=== PATIENT | male | born 1975 | race Hispanic/Latino ===

== ENCOUNTER 2017-05-27 09:32 | Inpatient (IN) | payer OTHER ==
[~2017-05-27] VITALS: Ht 188 cm; Wt 126.1 kg
[~2017-05-27 09:32] MED LIST: AMLO5TAB4 PO; DOXY100C2 PO; HYDR12.530 PO; INSU100V12 SQ; LISI30TA4 PO; PIOG15TA66 PO
[2017-05-27] MEDS ORDERED: ZOSYN 3.375GM+NS 50ML 50 ML IV ONE ×2 (09:52→17:54)
[2017-05-27] MEDS ORDERED: VANCOMYCIN 1GM+NS 250ML 250 ML IV ONE (09:53)
[2017-05-27] MEDS ORDERED: ACETAMINOPHEN EXTRA STRENGTH 500 MG TABLET ONE (09:53)
[2017-05-27 10:05] LABS: BASOPHILS % (AUTO) 0.6 % (0.0-5.0); EOSINOPHILS % (AUTO) 0.1 % (0.0-8.0); HEMATOCRIT 37.9 % (42-54); MEAN CORPUSCULAR HEMOGLOBIN 28.4 pg (27.0-33.0); MEAN CORPUSCULAR HGB CONC 33.7 g/dL (32.0-36.0); MEAN CORPUSCULAR VOLUME 84.4 fL (79-99); MONOCYTES % (AUTO) 6.2 % (3.0-13.0); NEUTROPHILS % (AUTO) 89.1 % (40.0-77.0); PLATELET COUNT (AUTO) 316 K/uL (130-400); RED BLOOD CELL COUNT(AUTO) 4.49 MIL/uL (4.50-6.20); RED CELL DISTRIBUTION WIDTH 12.3 % (11.0-15.5)
[2017-05-27 10:14] LABS: INR 1.11 (0.85-1.15); PARTIAL THROMBOPLASTIN TIME 35.7 SEC (26.3-35.5); PROTHROMBIN TIME 11.6 SEC (9.6-11.6)
[2017-05-27 10:27] LABS: ALANINE AMINOTRANSFERASE 25 U/L (12-78); ALBUMIN 2.6 g/dL (3.5-5.0); ASPARTATE AMINOTRANSFERASE 18 U/L (10-37); BILIRUBIN,TOTAL 0.9 mg/dL (0.2-1.0); CARBON DIOXIDE 20 mmol/L (21-32); CHLORIDE 92 mmol/L (101-111); CREATINE KINASE MB < 0.5 ng/mL (0.5-3.6); CREATINE KINASE, TOTAL 168 U/L (21-232); CREATININE 1.7 mg/dL (0.5-1.5); GLOMERULAR FILTR. RATE CALC 47 mL/min (>60); MYOGLOBIN 151 ng/mL (10-92); POTASSIUM 4.6 mmol/L (3.5-5.1); SODIUM SERUM 129 mmol/L (136-145); TOTAL PROTEIN, SERUM 7.7 g/dL (6.0-8.3); TROPONIN I < 0.04 ng/mL (0.00-0.06); UREA NITROGEN, BLOOD 17 mg/dL (7-18)
[2017-05-27 10:45] LABS: GLUCOSE,RANDOM 452 mg/dL (70-105)
[2017-05-27] MEDS ORDERED: INSULIN HUMULIN R 100 UNIT/ML 3ML ONE (11:02)
[2017-05-27] MEDS ORDERED: MAG HYDROX/AL HYDROX/SIMETH ES 30 ML SUSP UDCUP PO PRN (12:00)
[2017-05-27] MEDS ORDERED: GUAIFENESIN-DM 200/20 MG 10 ML PO PRN (12:00)
[2017-05-27] MEDS ORDERED: MORPHINE SULFATE 2 MG/ML 1ML SYG IVP PRN (12:00)
[2017-05-27] MEDS ORDERED: ACETAMINOPHEN-CODEINE 300/30MG TAB PO PRN (12:00)
[2017-05-27] MEDS ORDERED: MORPHINE SULFATE 2 MG/ML 1ML SYG IV PRN (12:00)
[2017-05-27] MEDS ORDERED: VANCOMYCIN PROTOCOL PER PHARMACY IV PRN (12:00)
[2017-05-27] MEDS ORDERED: ONDANSETRON HCL 4 MG/2 ML VIAL IV PRN (12:00)
[2017-05-27] MEDS ORDERED: ACETAMINOPHEN 325 MG TAB PO PRN (12:00)
[2017-05-27] MEDS ORDERED: LACTULOSE 20 GM/30 ML UDCUP PO PRN (12:00)
[2017-05-27] MEDS ORDERED: SODIUM CHLORIDE 0.9% 1000ML 4,000 ML IV ONE (12:02)
[2017-05-27 12:56] LABS: HEMOGLOBIN A1C 12.3 % (4.0-6.0)
[2017-05-27] MEDS ORDERED: ZOSYN 3.375GM+NS 50ML 50 ML IV SCH (13:00)
[2017-05-27] MEDS ORDERED: PIPERACILLIN SODIUM/TAZOBACTAM 3.375 GM VIAL IV SCH (13:00)
[2017-05-27 14:19] LABS: APPEARANCE,URINE Cloudy (CLEAR); BILIRUBIN,URINE Negative (NEGATIVE); COLOR,URINE Yellow (YELLOW); GLUCOSE, URINE (UA) >=1000 mg/dL (NEGATIVE); KETONES,URINE >=80 mg/dL (NEGATIVE); LEUKOCYTE ESTERASE ,URINE Negative (NEGATIVE); NITRATE,URINE Negative (NEGATIVE); OCCULT BLOOD,URINE Moderate (NEGATIVE); PROTEIN,URINE POS 2+ (NEGATIVE); UROBILINOGEN,URINE 0.2 mg/dL (0.2-1.0)
[2017-05-27 14:30] LABS: BACTERIA,URINE Rare /HPF (None Seen); SQUAMOUS EPITHELIAL CELL,UR Rare /LPF (0-2); WBC,URINE 0-1 /HPF (0-1)
[2017-05-27 21:30] VITALS: BP 163/74
[2017-05-27] MEDS: MEROPENEM 1 GM VIAL IVP SCH (21:58)
[2017-05-27] MEDS: ACETAMINOPHEN 325 MG TAB PO PRN (22:00)
[2017-05-27] MEDS: FAMOTIDINE 20MG TAB 20 MG TAB PO SCH (22:00)
[2017-05-27] MEDS: INSULIN GLARGINE 100 UNITS/ML 10 ML VIAL SQ SCH (22:04)
[2017-05-27] MEDS ORDERED: NPH,100V SQ (22:28)
[2017-05-27] MEDS ORDERED: METF10004 PO (22:28)
[2017-05-27 23:03] VITALS: BP 145/78
[2017-05-28] VITALS (24 sets, daily range): BP systolic 98–167; BP diastolic 50–89
[2017-05-28] MEDS ORDERED: HYDRALAZINE HCL 20 MG/ML VIAL IV PRN
[2017-05-28] MEDS ORDERED: DEXTROSE 50%-WATER 50 ML DISP.SYRIN IV PRN
[2017-05-28] MEDS ORDERED: GLUCAGON 1MG KIT 1 MG ML IM PRN
[2017-05-28] MEDS: MEROPENEM 1 GM VIAL IVP SCH ×3 (05:06→20:42)
[2017-05-28] MEDS: ACETAMINOPHEN 325 MG TAB PO PRN (05:11)
[2017-05-28 06:16] LABS: MEAN CORPUSCULAR HEMOGLOBIN 28.2 pg (27.0-33.0); MEAN CORPUSCULAR HGB CONC 33.5 g/dL (32.0-36.0); MEAN CORPUSCULAR VOLUME 84.4 fL (79-99); PLATELET COUNT (AUTO) 300 K/uL (130-400); RED BLOOD CELL COUNT(AUTO) 4.02 MIL/uL (4.50-6.20); RED CELL DISTRIBUTION WIDTH 12.2 % (11.0-15.5); WHITE BLOOD COUNT (AUTO) 15.3 K/uL (4.8-10.8)
[2017-05-28 06:22] LABS: CREATININE 1.3 mg/dL (0.5-1.5); POTASSIUM 3.8 mmol/L (3.5-5.1)
[2017-05-28] MEDS: INSULIN HUMULIN R 100 UNIT/ML 3ML SQ SCH ×3 (06:23→20:48)
[2017-05-28] MEDS: INSULIN GLARGINE 100 UNITS/ML 10 ML VIAL SQ SCH ×2 (06:24→20:49)
[2017-05-28] MEDS ORDERED: COMPOUND IV REFRIGERATED 1 EACH IVSOLN MISC PRN (07:30)
[2017-05-28] MEDS ORDERED: VANCOMYCIN 1.5 GM in SODIUM CHLORIDE 0.9% 250 ML IV SCH (07:30)
[2017-05-28] MEDS: FAMOTIDINE 20MG TAB 20 MG TAB PO SCH ×2 (08:45→20:42)
[2017-05-28] MEDS ORDERED: DEXAMETHASONE SOD PHOSPHATE 10MG/ML 1ML VIAL ONE ×2 (16:11→18:14)
[2017-05-28] MEDS ORDERED: GLYCOPYRROLATE 0.2 MG/ML 5 ML VIAL ONE ×2 (16:11→18:15)
[2017-05-28] MEDS ORDERED: SUCCINYLCHOLINE 200MG/10ML SYR ONE (16:11)
[2017-05-28] MEDS ORDERED: LIDOCAINE PF 2% 5ML ABBOJECT ONE (16:11)
[2017-05-28] MEDS ORDERED: MIDAZOLAM HCL 1 MG/ML 2ML VIAL ONE (16:11)
[2017-05-28] MEDS ORDERED: ONDANSETRON HCL 4 MG/2 ML VIAL ONE (16:11)
[2017-05-28] MEDS ORDERED: PROPOFOL 10 MG/ML 20ML VIAL IV ONE (16:11)
[2017-05-28] MEDS ORDERED: FENTANYL CITRATE PF 50 MCG/1 ML 2ML VIAL ONE ×3 (16:12→18:09)
[2017-05-28] MEDS: VANCOMYCIN 1.25 GM in SODIUM CHLORIDE 0.9% 250 ML IV SCH ×2 (16:19→21:53)
[2017-05-28] MEDS ORDERED: NEOMY SULF/POLYMYXIN B SULFATE 1 ML AMPUL IR ONE (18:02)
[2017-05-28] MEDS ORDERED: ROCURONIUM BROMIDE 10MG/1ML 5ML VL ONE (18:15)
[2017-05-28] MEDS ORDERED: LIDOCAINE HCL 2% JELLY 5 ML ONE (18:15)
[2017-05-28] MEDS ORDERED: PHENYLEPHRINE HCL 10 MG/ML 1ML VIAL IV ONE (18:15)
[2017-05-28] MEDS ORDERED: METOCLOPRAMIDE 10 MG/2 ML VIAL ONE (18:15)
[2017-05-28] MEDS ORDERED: ACETAMINOPHEN EXTRA STRENGTH 500 MG TABLET ONE (18:50)
[2017-05-29] VITALS (8 sets, daily range): BP systolic 106–169; BP diastolic 59–95
[2017-05-29] MEDS: MEROPENEM 1 GM VIAL IVP SCH ×3 (04:21→21:23)
[2017-05-29 04:48] LABS: HEMATOCRIT 35.2 % (42-54); MEAN CORPUSCULAR HEMOGLOBIN 28.1 pg (27.0-33.0); MEAN CORPUSCULAR HGB CONC 33.1 g/dL (32.0-36.0); MEAN CORPUSCULAR VOLUME 84.9 fL (79-99); PLATELET COUNT (AUTO) 338 K/uL (130-400); RED BLOOD CELL COUNT(AUTO) 4.15 MIL/uL (4.50-6.20); RED CELL DISTRIBUTION WIDTH 12.4 % (11.0-15.5); WHITE BLOOD COUNT (AUTO) 13.8 K/uL (4.8-10.8)
[2017-05-29 04:58] LABS: CREATININE 1.2 mg/dL (0.5-1.5); POTASSIUM 4.6 mmol/L (3.5-5.1)
[2017-05-29] MEDS: VANCOMYCIN 1.25 GM in SODIUM CHLORIDE 0.9% 250 ML IV SCH (05:02)
[2017-05-29] MEDS: INSULIN HUMULIN R 100 UNIT/ML 3ML SQ SCH ×4 (06:08→21:26)
[2017-05-29] MEDS: INSULIN GLARGINE 100 UNITS/ML 10 ML VIAL SQ SCH ×2 (06:12→21:27)
[2017-05-29] MEDS: FAMOTIDINE 20MG TAB 20 MG TAB PO SCH ×2 (09:44→21:23)
[2017-05-29] MEDS: LISINOPRIL 20 MG TABLET PO SCH (09:44)
[2017-05-29] MEDS: ATORVASTATIN CALCIUM 20 MG TABLET PO SCH (21:23)
[2017-05-29] MEDS: VANCOMYCIN 1.5 GM in SODIUM CHLORIDE 0.9% 250 ML IV SCH (21:24)
[2017-05-30] VITALS (21 sets, daily range): BP systolic 104–160; BP diastolic 60–87
[2017-05-30] MEDS: MEROPENEM 1 GM VIAL IVP SCH ×3 (04:59→21:02)
[2017-05-30 05:10] LABS: HEMATOCRIT 32.7 % (42-54); MEAN CORPUSCULAR HEMOGLOBIN 27.9 pg (27.0-33.0); MEAN CORPUSCULAR HGB CONC 33.6 g/dL (32.0-36.0); MEAN CORPUSCULAR VOLUME 83.1 fL (79-99); PLATELET COUNT (AUTO) 356 K/uL (130-400); RED BLOOD CELL COUNT(AUTO) 3.94 MIL/uL (4.50-6.20); RED CELL DISTRIBUTION WIDTH 12.7 % (11.0-15.5); WHITE BLOOD COUNT (AUTO) 10.6 K/uL (4.8-10.8)
[2017-05-30 05:32] LABS: CREATININE 1.2 mg/dL (0.5-1.5); POTASSIUM 3.6 mmol/L (3.5-5.1)
[2017-05-30] MEDS: INSULIN HUMULIN R 100 UNIT/ML 3ML SQ SCH ×4 (06:24→21:13)
[2017-05-30] MEDS: INSULIN GLARGINE 100 UNITS/ML 10 ML VIAL SQ SCH ×2 (06:25→21:14)
[2017-05-30] MEDS: ASPIRIN 81MG TAB.CHEW PO SCH (09:00)
[2017-05-30] MEDS ORDERED: SODIUM CHLORIDE 0.9% 1000ML 1,000 ML IV ONE (09:09)
[2017-05-30] MEDS ORDERED: NEOMY SULF/POLYMYXIN B SULFATE 1 ML AMPUL IR ONE (09:14)
[2017-05-30] MEDS ORDERED: DEXAMETHASONE SOD PHOSPHATE 10MG/ML 1ML VIAL ONE (09:36)
[2017-05-30] MEDS ORDERED: GLYCOPYRROLATE 0.2 MG/ML 5 ML VIAL ONE (09:36)
[2017-05-30] MEDS ORDERED: LIDOCAINE PF 2% 5ML ABBOJECT ONE (09:36)
[2017-05-30] MEDS ORDERED: ONDANSETRON HCL 4 MG/2 ML VIAL ONE (09:36)
[2017-05-30] MEDS ORDERED: FENTANYL CITRATE PF 50 MCG/1 ML 2ML VIAL ONE (09:36)
[2017-05-30] MEDS ORDERED: MIDAZOLAM HCL 1 MG/ML 2ML VIAL ONE (09:37)
[2017-05-30] MEDS ORDERED: PROPOFOL 10 MG/ML 20ML VIAL IV ONE (09:37)
[2017-05-30] MEDS: FAMOTIDINE 20MG TAB 20 MG TAB PO SCH ×2 (11:43→21:03)
[2017-05-30] MEDS: LISINOPRIL 20 MG TABLET PO SCH (11:44)
[2017-05-30] MEDS: VANCOMYCIN 1.5 GM in SODIUM CHLORIDE 0.9% 250 ML IV SCH ×2 (11:44→21:03)
[2017-05-30] MEDS: ATORVASTATIN CALCIUM 20 MG TABLET PO SCH (21:03)
[2017-05-31 00:48] VITALS: BP 153/76
[2017-05-31 04:48] VITALS: BP 132/61
[2017-05-31 04:50] VITALS: BP 140/70
[2017-05-31] MEDS: MEROPENEM 1 GM VIAL IVP SCH ×2 (04:51→12:07)
[2017-05-31] MEDS: INSULIN HUMULIN R 100 UNIT/ML 3ML SQ SCH ×2 (06:30→12:24)
[2017-05-31] MEDS: INSULIN GLARGINE 100 UNITS/ML 10 ML VIAL SQ SCH (06:31)
[2017-05-31 08:00] VITALS: BP 156/87
[2017-05-31] MEDS: VANCOMYCIN 1.5 GM in SODIUM CHLORIDE 0.9% 250 ML IV SCH (09:00)
[2017-05-31] MEDS: ASPIRIN 81MG TAB.CHEW PO SCH (10:01)
[2017-05-31] MEDS: FAMOTIDINE 20MG TAB 20 MG TAB PO SCH (10:01)
[2017-05-31] MEDS: LISINOPRIL 20 MG TABLET PO SCH (10:01)
[2017-05-31 10:55] VITALS: BP 144/85
[2017-05-31] MEDS ORDERED: HONEY 1 APPL/ML TUBE TP SCH (11:20)
== END 2017-05-31 15:40 | disposition home or self-care (01) | DRG 853 ==
LOC: EDH 09:32 → EDHIP 09:33 → 4CH 20:51 → 4BH 05-30 02:36
PROVIDERS: ADMIT Family Medicine; ATTEND Family Medicine
PROC: 0JBQ0ZZ Excision of Right Foot Subcutaneous Tissue and Fascia, Open Approach (ICD-10-PCS; principal; 2017-05-28 17:39)
PROC: 0JBQ0ZZ Excision of Right Foot Subcutaneous Tissue and Fascia, Open Approach (ICD-10-PCS; 2017-05-30)
DX: A41.9 Sepsis, unspecified organism (principal); A48.0 Gas gangrene; N17.9 Acute kidney failure, unspecified; E87.2 Acidosis; E11.40 Type 2 diabetes mellitus with diabetic neuropathy, unspecified; L03.115 Cellulitis of right lower limb; M86.8X7 Other osteomyelitis, ankle and foot; E11.52 Type 2 diabetes mellitus with diabetic peripheral angiopathy with gangrene; L02.611 Cutaneous abscess of right foot; E11.65 Type 2 diabetes mellitus with hyperglycemia; I10 Essential (primary) hypertension; E11.69 Type 2 diabetes mellitus with other specified complication; S90.821A Blister (nonthermal), right foot, initial encounter; E66.9 Obesity, unspecified; Z28.21 Immunization not carried out because of patient refusal; Z79.4 Long term (current) use of insulin; Z89.612 Acquired absence of left leg above knee; Z83.3 Family history of diabetes mellitus
CPT/HCPCS: 36415; 71045; 73630; 73718; 80048; 80053; 80202; 81001; 82550; 82553; 82948; 83036; 83605; 83874; 84484; 85025; 85027; 85610; 85730; 87040; 87070; 87076; 87088; 87205; 88304; 93005; 93926; A4218; J0330; J0360; J1100; J1815; J2001; J2185; J2250; J2370; J2405; J2543; J2704; J2765; J3010; J3370; J3490; J7030

== ENCOUNTER 2017-07-17 22:38 | Inpatient (IN) | payer MEDICAID, OTHER ==
[~2017-07-17] VITALS: Ht 188 cm; Wt 122.5 kg
[~2017-07-17 22:38] MED LIST changes: -AMLO5TAB4 PO; -DOXY100C2 PO; -HYDR12.530 PO; -INSU100V12 SQ; +METF10004 PO; +NPH,100V SQ; -PIOG15TA66 PO
[2017-07-17 23:56] LABS: BASOPHILS % (AUTO) 0.6 % (0.0-5.0); EOSINOPHILS % (AUTO) 1.4 % (0.0-8.0); HEMATOCRIT 33.1 % (42-54); LYMPHOCYTES % (AUTO) 8.5 % (21.0-51.0); MEAN CORPUSCULAR HEMOGLOBIN 27.2 pg (27.0-33.0); MEAN CORPUSCULAR HGB CONC 33.7 g/dL (32.0-36.0); MEAN CORPUSCULAR VOLUME 80.7 fL (79-99); MONOCYTES % (AUTO) 4.4 % (3.0-13.0); NEUTROPHILS % (AUTO) 85.1 % (40.0-77.0); PLATELET COUNT (AUTO) 498 K/uL (130-400); RED CELL DISTRIBUTION WIDTH 13.5 % (11.0-15.5); WHITE BLOOD COUNT (AUTO) 16.1 K/uL (4.8-10.8)
[2017-07-18] MEDS ORDERED: POTASSIUM CHLORIDE 10% ELIXIR 20 MEQ/15 ML UDCUP PO PRN
[2017-07-18] MEDS ORDERED: POTASSIUM CHLORIDE 20 MEQ ERTAB PO PRN
[2017-07-18] MEDS ORDERED: VANCOMYCIN 1GM+NS 250ML 250 ML IV SCH
[2017-07-18] MEDS ORDERED: LIDOCAINE HCL-MPF 1% 2ML VIAL IVP PRN
[2017-07-18] MEDS ORDERED: ONDANSETRON HCL 4 MG/2 ML VIAL IV PRN
[2017-07-18] MEDS ORDERED: POTASSIUM CHLORIDE 20MEQ/100ML 100 ML IV PRN
[2017-07-18] MEDS ORDERED: SODIUM CHLORIDE 0.9% 1000ML 1,000 ML IV ONE (00:04)
[2017-07-18] MEDS ORDERED: VANCOMYCIN 1GM+NS 250ML 250 ML IV ONE (00:04)
[2017-07-18 00:05] LABS: ALBUMIN 2.6 g/dL (3.5-5.0); BILIRUBIN,TOTAL 0.4 mg/dL (0.2-1.0); CREATININE 1.5 mg/dL (0.5-1.5); POTASSIUM 4.3 mmol/L (3.5-5.1); TOTAL PROTEIN, SERUM 8.8 g/dL (6.0-8.3)
[2017-07-18 00:37] LABS: APPEARANCE,URINE Cloudy (CLEAR); BILIRUBIN,URINE Negative (NEGATIVE); COLOR,URINE Yellow (YELLOW); GLUCOSE, URINE (UA) >=1000 mg/dL (NEGATIVE); KETONES,URINE Negative (NEGATIVE); LEUKOCYTE ESTERASE ,URINE Negative (NEGATIVE); NITRATE,URINE Negative (NEGATIVE); OCCULT BLOOD,URINE Moderate (NEGATIVE); PROTEIN,URINE POS 2+ (NEGATIVE); UROBILINOGEN,URINE 0.2 mg/dL (0.2-1.0)
[2017-07-18] MEDS ORDERED: PHARMACY COMMUNICATION MISC SCH (00:45)
[2017-07-18] MEDS ORDERED: VANCOMYCIN PROTOCOL PER PHARMACY IV SCH (00:45)
[2017-07-18 00:47] LABS: BACTERIA,URINE None Seen /HPF (None Seen); MUCUS,URINE Rare LPF (None Seen); SQUAMOUS EPITHELIAL CELL,UR Rare /LPF (0-2); WBC,URINE 0-1 /HPF (0-1); YEAST,URINE BUDDING None Seen /HPF (None Seen)
[2017-07-18] MEDS ORDERED: INSULIN HUMULIN R 100 UNIT/ML 3ML ONE (01:10)
[2017-07-18] MEDS ORDERED: ACETAMINOPHEN 325 MG TAB ONE (01:10)
[2017-07-18 02:20] VITALS: BP 129/78
[2017-07-18] MEDS ORDERED: NPH,100V11 SQ (02:58)
[2017-07-18] MEDS: MEROPENEM 1 GM VIAL IVP SCH ×3 (03:15→07:01)
[2017-07-18 04:00] VITALS: BP 136/73
[2017-07-18] MEDS ORDERED: ZOSYN 3.375GM+NS 50ML 50 ML IV SCH (05:00)
[2017-07-18 06:01] LABS: HEMATOCRIT 28.8 % (42-54); MEAN CORPUSCULAR HEMOGLOBIN 27.1 pg (27.0-33.0); MEAN CORPUSCULAR HGB CONC 33.7 g/dL (32.0-36.0); MEAN CORPUSCULAR VOLUME 80.2 fL (79-99); PLATELET COUNT (AUTO) 460 K/uL (130-400); RED CELL DISTRIBUTION WIDTH 13.5 % (11.0-15.5); WHITE BLOOD COUNT (AUTO) 14.1 K/uL (4.8-10.8)
[2017-07-18 06:08] LABS: CREATININE 1.4 mg/dL (0.5-1.5); POTASSIUM 3.7 mmol/L (3.5-5.1)
[2017-07-18] MEDS ORDERED: COMPOUND IV REFRIGERATED 1 EACH IVSOLN MISC PRN (06:45)
[2017-07-18] MEDS: INSULIN HUMULIN R 100 UNIT/ML 3ML SQ SCH ×4 (07:03→21:55)
[2017-07-18 08:00] VITALS: BP 139/87
[2017-07-18] MEDS: FAMOTIDINE 20MG TAB 20 MG TAB PO SCH ×2 (08:50→20:39)
[2017-07-18] MEDS: VANCOMYCIN 1.75 GM in SODIUM CHLORIDE 0.9% 250 ML IV SCH ×2 (08:50→20:39)
[2017-07-18] MEDS ORDERED: GUAIFENESIN-DM 200/20 MG 10 ML PO PRN (10:30)
[2017-07-18] MEDS ORDERED: MORPHINE SULFATE 2 MG/ML 1ML SYG IV PRN ×2 (10:30)
[2017-07-18] MEDS ORDERED: ONDANSETRON HCL MDV 20ML 2 MG/ML VIAL IV PRN (10:30)
[2017-07-18] MEDS ORDERED: ACETAMINOPHEN-CODEINE 300/30MG TAB PO PRN ×2 (10:30)
[2017-07-18] MEDS ORDERED: MAG HYDROX/AL HYDROX/SIMETH ES 30 ML SUSP UDCUP PO PRN (10:30)
[2017-07-18] MEDS ORDERED: LACTULOSE 20 GM/30 ML UDCUP PO PRN (10:30)
[2017-07-18] MEDS ORDERED: MORPHINE SULFATE 4 MG/1ML SYG IV PRN ×2 (10:30)
[2017-07-18] MEDS ORDERED: HYDRALAZINE HCL 20 MG/ML VIAL IV PRN ×2 (10:30)
[2017-07-18] MEDS ORDERED: NITROGLYCERIN 0.4 MG SL TAB SL PRN (10:30)
[2017-07-18] MEDS ORDERED: ACETAMINOPHEN 325 MG TAB PO PRN ×3 (10:30)
[2017-07-18 12:00] VITALS: BP 149/88
[2017-07-18] MEDS: METFORMIN HCL 500 MG TABLET PO SCH (17:23)
[2017-07-18 17:24] VITALS: BP 147/81
[2017-07-18] MEDS: ACETAMINOPHEN 325 MG TAB PO PRN (17:43)
[2017-07-18] MEDS: INSULIN NPH 100 UNIT/ML 3ML SQ SCH (17:43)
[2017-07-18 20:00] VITALS: BP 135/81
[2017-07-19] VITALS (8 sets, daily range): BP systolic 123–181; BP diastolic 72–96
[2017-07-19] MEDS: MEROPENEM 1 GM VIAL IVP SCH ×3 (00:43→17:59)
[2017-07-19 05:30] LABS: HEMATOCRIT 28.3 % (42-54); MEAN CORPUSCULAR HEMOGLOBIN 27.2 pg (27.0-33.0); MEAN CORPUSCULAR HGB CONC 34.1 g/dL (32.0-36.0); MEAN CORPUSCULAR VOLUME 79.7 fL (79-99); PLATELET COUNT (AUTO) 384 K/uL (130-400); RED BLOOD CELL COUNT(AUTO) 3.55 MIL/uL (4.50-6.20); RED CELL DISTRIBUTION WIDTH 13.3 % (11.0-15.5); WHITE BLOOD COUNT (AUTO) 18.8 K/uL (4.8-10.8)
[2017-07-19 05:34] LABS: CREATININE 1.2 mg/dL (0.5-1.5); POTASSIUM 3.8 mmol/L (3.5-5.1)
[2017-07-19] MEDS: INSULIN HUMULIN R 100 UNIT/ML 3ML SQ SCH ×4 (06:37→20:33)
[2017-07-19] MEDS: METFORMIN HCL 500 MG TABLET PO SCH ×2 (08:19→17:04)
[2017-07-19] MEDS: VANCOMYCIN 1.75 GM in SODIUM CHLORIDE 0.9% 250 ML IV SCH ×2 (09:35→21:22)
[2017-07-19] MEDS: LISINOPRIL 10 MG TABLET PO SCH (09:36)
[2017-07-19] MEDS: FAMOTIDINE 20MG TAB 20 MG TAB PO SCH ×2 (09:36→20:31)
[2017-07-19] MEDS: INSULIN NPH 100 UNIT/ML 3ML SQ SCH ×2 (09:53→17:01)
[2017-07-19] MEDS: ACETAMINOPHEN 325 MG TAB PO PRN (16:24)
[2017-07-20] VITALS (21 sets, daily range): BP systolic 119–152; BP diastolic 71–87
[2017-07-20] MEDS: MEROPENEM 1 GM VIAL IVP SCH ×3 (00:54→16:49)
[2017-07-20 05:29] LABS: CREATININE 1.2 mg/dL (0.5-1.5); POTASSIUM 3.7 mmol/L (3.5-5.1)
[2017-07-20 05:34] LABS: HEMATOCRIT 28.4 % (42-54); MEAN CORPUSCULAR HEMOGLOBIN 27.2 pg (27.0-33.0); MEAN CORPUSCULAR HGB CONC 33.8 g/dL (32.0-36.0); MEAN CORPUSCULAR VOLUME 80.5 fL (79-99); PLATELET COUNT (AUTO) 455 K/uL (130-400); RED BLOOD CELL COUNT(AUTO) 3.52 MIL/uL (4.50-6.20); RED CELL DISTRIBUTION WIDTH 13.5 % (11.0-15.5); WHITE BLOOD COUNT (AUTO) 13.9 K/uL (4.8-10.8)
[2017-07-20] MEDS: INSULIN HUMULIN R 100 UNIT/ML 3ML SQ SCH ×4 (06:31→21:00)
[2017-07-20] MEDS: INSULIN NPH 100 UNIT/ML 3ML SQ SCH ×2 (08:00→16:51)
[2017-07-20] MEDS: METFORMIN HCL 500 MG TABLET PO SCH ×2 (08:00→16:50)
[2017-07-20] MEDS: FAMOTIDINE 20MG TAB 20 MG TAB PO SCH ×2 (08:09→21:24)
[2017-07-20] MEDS: VANCOMYCIN 1.75 GM in SODIUM CHLORIDE 0.9% 250 ML IV SCH ×2 (08:09→21:24)
[2017-07-20] MEDS: LISINOPRIL 10 MG TABLET PO SCH (08:10)
[2017-07-20] MEDS ORDERED: LIDOCAINE HCL 1% 20 ML VIAL ONE (09:09)
[2017-07-20] MEDS ORDERED: BUPIVACAINE/PF 0.5% 10ML VIAL ONE (09:09)
[2017-07-20] MEDS ORDERED: MIDAZOLAM HCL 1 MG/ML 2ML VIAL ONE ×2 (09:20→10:09)
[2017-07-20] MEDS ORDERED: FENTANYL CITRATE PF 50 MCG/1 ML 2ML VIAL ONE (09:20)
[2017-07-20] MEDS ORDERED: PROPOFOL 10 MG/ML 20ML VIAL IV ONE (09:29)
[2017-07-21] VITALS: BP 124/73
[2017-07-21] MEDS: MEROPENEM 1 GM VIAL IVP SCH ×3 (00:33→17:06)
[2017-07-21 04:00] VITALS: BP 140/73
[2017-07-21 05:36] LABS: HEMATOCRIT 28.3 % (42-54); MEAN CORPUSCULAR HEMOGLOBIN 27.6 pg (27.0-33.0); MEAN CORPUSCULAR HGB CONC 34.3 g/dL (32.0-36.0); MEAN CORPUSCULAR VOLUME 80.4 fL (79-99); NUCLEATED RED BLOOD CELLS 0.1 % (0.0-0.19); PLATELET COUNT (AUTO) 419 K/uL (130-400); RED BLOOD CELL COUNT(AUTO) 3.52 MIL/uL (4.50-6.20); RED CELL DISTRIBUTION WIDTH 13.5 % (11.0-15.5); WHITE BLOOD COUNT (AUTO) 8.2 K/uL (4.8-10.8)
[2017-07-21 05:44] LABS: CREATININE 1.1 mg/dL (0.5-1.5); POTASSIUM 3.6 mmol/L (3.5-5.1)
[2017-07-21] MEDS: INSULIN HUMULIN R 100 UNIT/ML 3ML SQ SCH ×4 (06:12→21:00)
[2017-07-21 07:56] VITALS: BP 126/74
[2017-07-21] MEDS: INSULIN NPH 100 UNIT/ML 3ML SQ SCH ×2 (08:00→17:00)
[2017-07-21] MEDS: LISINOPRIL 10 MG TABLET PO SCH (09:48)
[2017-07-21] MEDS: METFORMIN HCL 500 MG TABLET PO SCH ×2 (09:48→17:05)
[2017-07-21] MEDS: FAMOTIDINE 20MG TAB 20 MG TAB PO SCH ×2 (09:49→22:47)
[2017-07-21] MEDS: VANCOMYCIN 1.75 GM in SODIUM CHLORIDE 0.9% 250 ML IV SCH ×2 (10:13→23:38)
[2017-07-21 11:38] VITALS: BP 135/73
[2017-07-21 16:23] VITALS: BP 153/90
[2017-07-21 19:00] VITALS: BP 158/88
[2017-07-22] VITALS (7 sets, daily range): BP systolic 122–151; BP diastolic 72–93
[2017-07-22] MEDS: INSULIN HUMULIN R 100 UNIT/ML 3ML SQ SCH ×4 (06:28→20:17)
[2017-07-22] MEDS: INSULIN NPH 100 UNIT/ML 3ML SQ SCH ×2 (08:00→17:00)
[2017-07-22] MEDS: FAMOTIDINE 20MG TAB 20 MG TAB PO SCH ×2 (10:10→20:05)
[2017-07-22] MEDS: LISINOPRIL 10 MG TABLET PO SCH (10:10)
[2017-07-22] MEDS: VANCOMYCIN 1.75 GM in SODIUM CHLORIDE 0.9% 250 ML IV SCH ×2 (10:11→20:06)
[2017-07-22] MEDS: METFORMIN HCL 500 MG TABLET PO SCH ×2 (10:19→17:32)
[2017-07-23 03:33] VITALS: BP 134/82
[2017-07-23] MEDS: INSULIN HUMULIN R 100 UNIT/ML 3ML SQ SCH ×4 (06:49→17:20)
[2017-07-23 08:01] VITALS: BP 159/99
[2017-07-23] MEDS: METFORMIN HCL 500 MG TABLET PO SCH ×2 (09:39→17:14)
[2017-07-23] MEDS: FAMOTIDINE 20MG TAB 20 MG TAB PO SCH (09:39)
[2017-07-23] MEDS: LISINOPRIL 10 MG TABLET PO SCH (09:40)
[2017-07-23] MEDS: INSULIN NPH 100 UNIT/ML 3ML SQ SCH ×2 (09:53→17:20)
[2017-07-23] MEDS: VANCOMYCIN 1.75 GM in SODIUM CHLORIDE 0.9% 250 ML IV SCH (09:55)
[2017-07-23 11:48] VITALS: BP 146/92
[2017-07-23 17:07] VITALS: BP 145/94
[2017-07-23 19:50] VITALS: BP 150/83
[2017-07-23] MEDS ORDERED: METRONIDAZOLE 500 MG TABLET PO STA (19:59)
[2017-07-23] MEDS ORDERED: ZYVOX 600 MG TAB PO SCH (20:30)
== END 2017-07-23 21:30 | disposition home or self-care (01) | DRG 853 ==
LOC: EDH 22:38 → OBSVTOIN 23:20 → EDHIP 23:20 → 4CH 07-18 01:58
PROVIDERS: ADMIT Family Medicine; ATTEND Family Medicine
PROC: 0JBQ0ZZ Excision of Right Foot Subcutaneous Tissue and Fascia, Open Approach (ICD-10-PCS; principal; 2017-07-20 09:25)
PROC: 0Q9 Lower Bones, Drainage (ICD-10-PCS; 2017-07-20 09:25)
DX: A41.9 Sepsis, unspecified organism (principal); A48.0 Gas gangrene; M72.6 Necrotizing fasciitis; E11.621 Type 2 diabetes mellitus with foot ulcer; E11.40 Type 2 diabetes mellitus with diabetic neuropathy, unspecified; L02.611 Cutaneous abscess of right foot; L03.115 Cellulitis of right lower limb; L97.419 Non-pressure chronic ulcer of right heel and midfoot with unspecified severity; M86.9 Osteomyelitis, unspecified; E11.622 Type 2 diabetes mellitus with other skin ulcer; E11.69 Type 2 diabetes mellitus with other specified complication; E66.9 Obesity, unspecified; E78.5 Hyperlipidemia, unspecified; I10 Essential (primary) hypertension; L97.519 Non-pressure chronic ulcer of other part of right foot with unspecified severity; Z68.34 Body mass index [BMI] 34.0-34.9, adult; Z89.612 Acquired absence of left leg above knee; Z89.512 Acquired absence of left leg below knee; Z83.3 Family history of diabetes mellitus
CPT/HCPCS: 36415; 73630; 73718; 80048; 80053; 80202; 81001; 82948; 83605; 85025; 85027; 87040; 87070; 87076; 87077; 87186; 87205; 88305; 88311; A4218; J0360; J1815; J2185; J2250; J2704; J3010; J3370; J3490; J7030

== ENCOUNTER 2017-08-22 20:44 | Emergency (ER) | payer MEDICAID, OTHER ==
[~2017-08-22 20:44] MED LIST changes: -NPH,100V SQ; +NPH,100V11 SQ
[2017-08-22] MEDS ORDERED: SODIUM CHLORIDE 0.9% 1000ML 1,000 ML IV ONE (21:00)
[2017-08-22 21:20] LABS: BASOPHILS % (AUTO) 5.4 % (0.0-5.0); EOSINOPHILS % (AUTO) 0.9 % (0.0-8.0); HEMATOCRIT 33.8 % (42-54); LYMPHOCYTES % (AUTO) 10.5 % (21.0-51.0); MEAN CORPUSCULAR HEMOGLOBIN 26.3 pg (27.0-33.0); MEAN CORPUSCULAR HGB CONC 32.8 g/dL (32.0-36.0); MEAN CORPUSCULAR VOLUME 80.3 fL (79-99); MONOCYTES % (AUTO) 6.2 % (3.0-13.0); PLATELET COUNT (AUTO) 542 K/uL (130-400); RED BLOOD CELL COUNT(AUTO) 4.21 MIL/uL (4.50-6.20); WHITE BLOOD COUNT (AUTO) 10.3 K/uL (4.8-10.8)
[2017-08-22 21:32] LABS: CREATININE 1.5 mg/dL (0.5-1.5); POTASSIUM 4.3 mmol/L (3.5-5.1)
[2017-08-22 21:37] LABS: ALBUMIN 2.5 g/dL (3.5-5.0); BILIRUBIN,TOTAL 0.2 mg/dL (0.2-1.0); TOTAL PROTEIN, SERUM 8.3 g/dL (6.0-8.3)
[2017-08-22] MEDS ORDERED: INSULIN HUMULIN R 100 UNIT/ML 3ML ONE (21:50)
[2017-08-22 23:42] LABS: APPEARANCE,URINE Clear (CLEAR); BILIRUBIN,URINE Negative (NEGATIVE); COLOR,URINE Yellow (YELLOW); GLUCOSE, URINE (UA) >=1000 mg/dL (NEGATIVE); KETONES,URINE Negative (NEGATIVE); LEUKOCYTE ESTERASE ,URINE Negative (NEGATIVE); NITRATE,URINE Negative (NEGATIVE); OCCULT BLOOD,URINE Moderate (NEGATIVE); PROTEIN,URINE 300 (NEGATIVE)
[2017-08-23 00:13] LABS: BACTERIA,URINE Rare /HPF (None Seen); MUCUS,URINE Few LPF (None Seen); SQUAMOUS EPITHELIAL CELL,UR Moderate /HPF (0-2)
[2017-08-23 00:14] LABS: WBC,URINE 0-1 /HPF (0-1)
== END 2017-08-23 00:33 | disposition home or self-care (01) ==
LOC: EDH 20:44
DX: E11.621 Type 2 diabetes mellitus with foot ulcer (principal); L97.519 Non-pressure chronic ulcer of other part of right foot with unspecified severity; E11.65 Type 2 diabetes mellitus with hyperglycemia; I10 Essential (primary) hypertension; Z79.4 Long term (current) use of insulin; Z89.612 Acquired absence of left leg above knee
CPT/HCPCS: 36415; 80053; 81001; 82948; 83605 ×2; 85025; 87040 ×2; 87804 ×2; 96361; 96374; 99284; J1815; J7030

== ENCOUNTER 2020-10-04 16:34 | Emergency (ER) | payer MEDICARE ==
[~2020-10-04 16:34] MED LIST changes: +ALBUHFA IH; +ASCO500C18 PO; +FAMO20TA8 PO; +INSU10VI3 SQ; -LISI30TA4 PO; -METF10004 PO; -NPH,100V11 SQ; +TORS20TA4 PO; +ZINC50TA64 PO
[2020-10-04 18:13] LABS: BASOPHILS % (AUTO) 0.4 % (0.0-5.0); EOSINOPHILS % (AUTO) 12.8 % (0.0-8.0); LYMPHOCYTES % (AUTO) 22.6 % (21.0-51.0); MEAN CORPUSCULAR HEMOGLOBIN 28.1 pg (27.0-33.0); MEAN CORPUSCULAR VOLUME 82.7 fL (79-99); MONOCYTES % (AUTO) 6.7 % (3.0-13.0); NEUTROPHILS % (AUTO) 57.1 % (40.0-77.0); PLATELET COUNT (AUTO) 276 K/uL (130-400); RED BLOOD CELL COUNT(AUTO) 5.08 MIL/uL (4.50-6.20); RED CELL DISTRIBUTION WIDTH 12.1 % (11.0-15.5)
[2020-10-04 18:26] LABS: CREATININE 2.4 mg/dL (0.5-1.5); POTASSIUM 4.2 mmol/L (3.5-5.1)
[2020-10-04 18:32] LABS: ALBUMIN 2.8 g/dL (3.5-5.0); BILIRUBIN,TOTAL 0.3 mg/dL (0.2-1.0); TOTAL PROTEIN, SERUM 7.5 g/dL (6.0-8.3)
[2020-10-04 18:57] LABS: INR 1.05 (0.85-1.15); PROTHROMBIN TIME 11.4 SEC (9.6-11.6)
[2020-10-04 18:58] LABS: PARTIAL THROMBOPLASTIN TIME 27.8 SEC (26.3-35.5)
[2020-10-04] MEDS ORDERED: SODIUM CHLORIDE 0.9% 1000ML 1,000 ML IV ONE (19:01)
[2020-10-04] MEDS ORDERED: DiphenhydrAMINE HCL 50 MG/ML VIAL ONE (19:02)
[2020-10-04] MEDS ORDERED: METOCLOPRAMIDE 10 MG/2 ML VIAL ONE (19:02)
[2020-10-04 23:00] LABS: APPEARANCE,URINE Clear (CLEAR); BILIRUBIN,URINE Negative (NEGATIVE); COLOR,URINE Yellow (YELLOW); GLUCOSE, URINE (UA) 250 mg/dL (NEGATIVE); KETONES,URINE Negative (NEGATIVE); LEUKOCYTE ESTERASE ,URINE Negative (NEGATIVE); NITRATE,URINE Negative (NEGATIVE); OCCULT BLOOD,URINE Small (NEGATIVE); PH,URINE 5.5 (5.0-8.0); PROTEIN,URINE >=1000 mg/dL (NEGATIVE); UROBILINOGEN,URINE 0.2 mg/dL (0.2-1.0)
[2020-10-04 23:08] LABS: AMPHET/METH SCREEN,URINE NEGATIVE (NEGATIVE); BARBITURATE SCREEN, URINE NEGATIVE (NEGATIVE); BENZODIAZEPINES SCREEN,URINE NEGATIVE (NEGATIVE); CANNABINOID SCREEN,URINE NEGATIVE (NEGATIVE); COCAINE SCREEN,URINE NEGATIVE (NEGATIVE); OPIATE SCREEN,URINE NEGATIVE (NEGATIVE); PHENCYCLIDINE SCREEN,URINE NEGATIVE (NEGATIVE)
[2020-10-04 23:42] LABS: BACTERIA,URINE Rare /HPF (None Seen); RBC,URINE 0-1 /HPF (0-1); WBC,URINE 0-1 /HPF (0-1)
== END 2020-10-04 23:27 | disposition home or self-care (01) ==
LOC: EDH 16:34
DX: E11.319 Type 2 diabetes mellitus with unspecified diabetic retinopathy without macular edema (principal); I11.0 Hypertensive heart disease with heart failure; I50.9 Heart failure, unspecified; Z98.890 Other specified postprocedural states; E86.0 Dehydration
CPT/HCPCS: 36415; 70450; 80053; 80305; 81001; 83605; 84484; 85025; 85610; 85730; 87040 ×2; 96361; 96374; 96375; 99284; J1200; J2765; J7030

== ENCOUNTER 2021-01-01 07:57 | Inpatient (IN) | payer MEDICARE ==
[~2021-01-01] VITALS: Ht 188 cm; Wt 124.0 kg
[2021-01-01 10:27] LABS: BASOPHILS % (AUTO) 0.7 % (0.0-5.0); EOSINOPHILS % (AUTO) 2.8 % (0.0-8.0); HEMATOCRIT 38.4 % (42-54); LYMPHOCYTES % (AUTO) 8.4 % (21.0-51.0); MEAN CORPUSCULAR HEMOGLOBIN 28.5 pg (27.0-33.0); MEAN CORPUSCULAR HGB CONC 32.6 g/dL (32.0-36.0); MEAN CORPUSCULAR VOLUME 87.7 fL (79-99); MONOCYTES % (AUTO) 5.7 % (3.0-13.0); NEUTROPHILS % (AUTO) 82.1 % (40.0-77.0); PLATELET COUNT (AUTO) 277 K/uL (130-400); RED BLOOD CELL COUNT(AUTO) 4.38 MIL/uL (4.50-6.20); RED CELL DISTRIBUTION WIDTH 13.2 % (11.0-15.5); WHITE BLOOD COUNT (AUTO) 13.7 K/uL (4.8-10.8)
[2021-01-01 10:53] LABS: ALBUMIN 2.9 g/dL (3.5-5.0); BILIRUBIN,TOTAL 0.6 mg/dL (0.2-1.0); CREATININE 2.4 mg/dL (0.5-1.5); POTASSIUM 4.5 mmol/L (3.5-5.1); TOTAL PROTEIN, SERUM 7.3 g/dL (6.0-8.3)
[2021-01-01 11:18] LABS: B-TYPE NATRIURETIC PEPTIDE 856 pg/mL (0-100)
[2021-01-01] MEDS ORDERED: FUROSEMIDE 20MG VIAL IV ONE (12:30)
[2021-01-01 12:47] VITALS: BP 136/88
[2021-01-01] MEDS ORDERED: FUROSEMIDE 20MG VIAL IV SCH (13:30)
[2021-01-01] MEDS ORDERED: ACETAMINOPHEN 325 MG TAB PO PRN ×2 (13:30)
[2021-01-01] MEDS ORDERED: LACTULOSE 20 GM/30 ML UDCUP PO PRN (13:30)
[2021-01-01] MEDS ORDERED: ONDANSETRON 4MG INJ IV PRN (13:30)
[2021-01-01] MEDS: NITROGLYCERIN 1GM OINT 1 INCH/1GM TD SCH ×2 (13:45→20:54)
[2021-01-01] MEDS: FAMOTIDINE 20MG TAB PO SCH (13:46)
[2021-01-01 14:21] VITALS: BP 130/70
[2021-01-01 16:06] LABS: INR 1.04 (0.85-1.15); PROTHROMBIN TIME 11.3 SEC (9.6-11.6)
[2021-01-01 16:08] LABS: PARTIAL THROMBOPLASTIN TIME 29.7 SEC (26.3-35.5)
[2021-01-01 16:39] LABS: APPEARANCE,URINE Clear (CLEAR); BILIRUBIN,URINE Negative (NEGATIVE); COLOR,URINE Yellow (YELLOW); GLUCOSE, URINE (UA) 250 mg/dL (NEGATIVE); KETONES,URINE Negative (NEGATIVE); LEUKOCYTE ESTERASE ,URINE Negative (NEGATIVE); NITRATE,URINE Negative (NEGATIVE); OCCULT BLOOD,URINE Small (NEGATIVE); PH,URINE 5.5 (5.0-8.0); PROTEIN,URINE 300 mg/dL (NEGATIVE); UROBILINOGEN,URINE 0.2 mg/dL (0.2-1.0)
[2021-01-01 16:47] LABS: AMPHET/METH SCREEN,URINE NEGATIVE (NEGATIVE); BACTERIA,URINE Few /HPF (None Seen); BARBITURATE SCREEN, URINE NEGATIVE (NEGATIVE); BENZODIAZEPINES SCREEN,URINE NEGATIVE (NEGATIVE); CANNABINOID SCREEN,URINE NEGATIVE (NEGATIVE); COCAINE SCREEN,URINE NEGATIVE (NEGATIVE); OPIATE SCREEN,URINE NEGATIVE (NEGATIVE); PHENCYCLIDINE SCREEN,URINE NEGATIVE (NEGATIVE); WBC,URINE 0-1 /HPF (0-1)
[2021-01-01 16:48] LABS: SQUAMOUS EPITHELIAL CELL,UR Few /HPF (0-2)
[2021-01-01 17:10] VITALS: BP 133/98
[2021-01-01] MEDS: INSULIN HUMULIN R 100 UNIT/ML 3ML SQ SCH ×2 (18:04→20:55)
[2021-01-01] MEDS: FUROSEMIDE 40MG VIAL IV SCH (18:05)
[2021-01-01 18:34] VITALS: BP 138/86
[2021-01-01 20:21] VITALS: BP 131/69
[2021-01-01] MEDS: METOPROLOL TARTRATE 25 MG TAB PO SCH (20:54)
[2021-01-01] MEDS: HEPARIN 5,000 UNIT VIAL SQ SCH (20:55)
[2021-01-01 22:25] VITALS: BP 138/80
[2021-01-02] VITALS: BP 132/63
[2021-01-02 04:00] VITALS: BP 117/71
[2021-01-02] MEDS: NITROGLYCERIN 1GM OINT 1 INCH/1GM TD SCH ×3 (04:29→21:13)
[2021-01-02] MEDS: FUROSEMIDE 40MG VIAL IV SCH ×2 (04:29→17:23)
[2021-01-02 05:07] LABS: BASOPHILS % (AUTO) 0.8 % (0.0-5.0); EOSINOPHILS % (AUTO) 2.5 % (0.0-8.0); LYMPHOCYTES % (AUTO) 13.8 % (21.0-51.0); MEAN CORPUSCULAR HEMOGLOBIN 28.5 pg (27.0-33.0); MEAN CORPUSCULAR HGB CONC 33.2 g/dL (32.0-36.0); MEAN CORPUSCULAR VOLUME 85.6 fL (79-99); NEUTROPHILS % (AUTO) 73.6 % (40.0-77.0); PLATELET COUNT (AUTO) 240 K/uL (130-400); RED BLOOD CELL COUNT(AUTO) 3.97 MIL/uL (4.50-6.20); RED CELL DISTRIBUTION WIDTH 13.2 % (11.0-15.5); WHITE BLOOD COUNT (AUTO) 10.6 K/uL (4.8-10.8)
[2021-01-02 05:19] LABS: CREATININE 2.7 mg/dL (0.5-1.5); POTASSIUM 4.1 mmol/L (3.5-5.1)
[2021-01-02] MEDS: INSULIN HUMULIN R 100 UNIT/ML 3ML SQ SCH ×4 (05:42→23:14)
[2021-01-02 08:00] VITALS: BP 117/70
[2021-01-02] MEDS ORDERED: ASPIRIN 325MG EC TAB PO SCH (08:30)
[2021-01-02] MEDS: FAMOTIDINE 20MG TAB PO SCH (09:21)
[2021-01-02] MEDS: METOPROLOL TARTRATE 25 MG TAB PO SCH ×2 (09:21→21:13)
[2021-01-02] MEDS: HEPARIN 5,000 UNIT VIAL SQ SCH ×2 (09:23→21:14)
[2021-01-02 12:00] VITALS: BP 120/71
[2021-01-02 16:00] VITALS: BP 123/75
[2021-01-02 20:00] VITALS: BP 147/80
[2021-01-03] VITALS: BP 109/67
[2021-01-03 04:00] VITALS: BP 104/71
[2021-01-03 05:27] LABS: BASOPHILS % (AUTO) 0.8 % (0.0-5.0); EOSINOPHILS % (AUTO) 5.6 % (0.0-8.0); HEMATOCRIT 31.7 % (42-54); LYMPHOCYTES % (AUTO) 18.2 % (21.0-51.0); MEAN CORPUSCULAR HEMOGLOBIN 29.1 pg (27.0-33.0); MEAN CORPUSCULAR HGB CONC 33.8 g/dL (32.0-36.0); MEAN CORPUSCULAR VOLUME 86.1 fL (79-99); MONOCYTES % (AUTO) 7.8 % (3.0-13.0); NEUTROPHILS % (AUTO) 67.2 % (40.0-77.0); PLATELET COUNT (AUTO) 228 K/uL (130-400); RED BLOOD CELL COUNT(AUTO) 3.68 MIL/uL (4.50-6.20); RED CELL DISTRIBUTION WIDTH 13.1 % (11.0-15.5)
[2021-01-03] MEDS: NITROGLYCERIN 1GM OINT 1 INCH/1GM TD SCH ×3 (05:44→20:30)
[2021-01-03] MEDS: FUROSEMIDE 40MG VIAL IV SCH ×2 (05:44→16:07)
[2021-01-03 05:53] LABS: ALBUMIN 2.3 g/dL (3.5-5.0); BILIRUBIN,TOTAL 0.4 mg/dL (0.2-1.0); CREATININE 2.6 mg/dL (0.5-1.5); POTASSIUM 4.1 mmol/L (3.5-5.1); TOTAL PROTEIN, SERUM 6.6 g/dL (6.0-8.3)
[2021-01-03] MEDS: INSULIN HUMULIN R 100 UNIT/ML 3ML SQ SCH ×4 (06:12→20:51)
[2021-01-03 08:00] VITALS: BP 153/103
[2021-01-03] MEDS: FAMOTIDINE 20MG TAB PO SCH (08:08)
[2021-01-03] MEDS: METOPROLOL TARTRATE 25 MG TAB PO SCH ×2 (08:08→20:47)
[2021-01-03] MEDS: HEPARIN 5,000 UNIT VIAL SQ SCH ×2 (08:11→20:50)
[2021-01-03 11:00] VITALS: BP 139/87
[2021-01-03 20:48] VITALS: BP 143/96
[2021-01-03] MEDS ORDERED: ATORVASTATIN 40 MG TABLET PO SCH (21:00)
[2021-01-03 23:52] VITALS: BP 103/66
[2021-01-04 04:03] VITALS: BP 133/90
[2021-01-04] MEDS: NITROGLYCERIN 1GM OINT 1 INCH/1GM TD SCH ×3 (04:30→20:30)
[2021-01-04 05:15] LABS: BASOPHILS % (AUTO) 0.7 % (0.0-5.0); HEMATOCRIT 32.6 % (42-54); LYMPHOCYTES % (AUTO) 18.9 % (21.0-51.0); MEAN CORPUSCULAR HEMOGLOBIN 28.5 pg (27.0-33.0); MEAN CORPUSCULAR HGB CONC 33.4 g/dL (32.0-36.0); MEAN CORPUSCULAR VOLUME 85.1 fL (79-99); MONOCYTES % (AUTO) 6.4 % (3.0-13.0); NEUTROPHILS % (AUTO) 68.8 % (40.0-77.0); PLATELET COUNT (AUTO) 269 K/uL (130-400); RED BLOOD CELL COUNT(AUTO) 3.83 MIL/uL (4.50-6.20); WHITE BLOOD COUNT (AUTO) 9.7 K/uL (4.8-10.8)
[2021-01-04] MEDS: FUROSEMIDE 40MG VIAL IV SCH (05:28)
[2021-01-04 05:33] LABS: ALBUMIN 2.3 g/dL (3.5-5.0); BILIRUBIN,TOTAL 0.4 mg/dL (0.2-1.0); CREATININE 2.5 mg/dL (0.5-1.5); POTASSIUM 4.1 mmol/L (3.5-5.1); TOTAL PROTEIN, SERUM 6.5 g/dL (6.0-8.3)
[2021-01-04] MEDS: INSULIN HUMULIN R 100 UNIT/ML 3ML SQ SCH ×4 (06:00→21:00)
[2021-01-04 08:00] VITALS: BP 127/69
[2021-01-04] MEDS: METOPROLOL TARTRATE 25 MG TAB PO SCH ×2 (08:50→20:46)
[2021-01-04] MEDS: ISOSORBIDE MONONITRATE 20 MG TABLET PO SCH (08:50)
[2021-01-04] MEDS: FAMOTIDINE 20MG TAB PO SCH (08:50)
[2021-01-04] MEDS: TORSEMIDE 20 MG TAB PO SCH ×2 (08:53→20:46)
[2021-01-04] MEDS: HEPARIN 5,000 UNIT VIAL SQ SCH ×2 (09:04→20:50)
[2021-01-04 12:00] VITALS: BP 130/79
[2021-01-04] MEDS ORDERED: INSU100I26 SQ (13:38)
[2021-01-04] MEDS ORDERED: INSU100I3 SQ (13:38)
[2021-01-04] MEDS ORDERED: LISI30TA4 PO (13:38)
[2021-01-04] MEDS ORDERED: CARV3.12 PO (13:38)
[2021-01-04] MEDS ORDERED: AEC81 PO (13:38)
[2021-01-04] MEDS ORDERED: ATOR40TA71 PO (13:38)
[2021-01-04] MEDS ORDERED: TORS20TA4 PO (13:38)
[2021-01-04] MEDS: HYDRALAZINE HCL 10 MG TABLET PO SCH ×2 (14:20→22:49)
[2021-01-04] MEDS: HONEY 1 APPL/ML TUBE TP SCH (15:50)
[2021-01-04 16:00] VITALS: BP 108/62
[2021-01-04 19:41] VITALS: BP 122/76
[2021-01-04] MEDS ORDERED: ATORVASTATIN 40 MG TABLET PO SCH (21:00)
[2021-01-04 23:37] VITALS: BP 115/75
[2021-01-05 03:46] VITALS: BP 113/69
[2021-01-05] MEDS: NITROGLYCERIN 1GM OINT 1 INCH/1GM TD SCH ×2 (04:27→12:30)
[2021-01-05 05:07] LABS: BASOPHILS % (AUTO) 0.8 % (0.0-5.0); HEMATOCRIT 33.9 % (42-54); LYMPHOCYTES % (AUTO) 20.7 % (21.0-51.0); MEAN CORPUSCULAR HGB CONC 33.6 g/dL (32.0-36.0); MEAN CORPUSCULAR VOLUME 86.3 fL (79-99); MONOCYTES % (AUTO) 7.9 % (3.0-13.0); NEUTROPHILS % (AUTO) 64.4 % (40.0-77.0); PLATELET COUNT (AUTO) 298 K/uL (130-400); RED BLOOD CELL COUNT(AUTO) 3.93 MIL/uL (4.50-6.20); RED CELL DISTRIBUTION WIDTH 12.8 % (11.0-15.5); WHITE BLOOD COUNT (AUTO) 8.9 K/uL (4.8-10.8)
[2021-01-05 05:27] LABS: ALBUMIN 2.3 g/dL (3.5-5.0); BILIRUBIN,TOTAL 0.4 mg/dL (0.2-1.0); CREATININE 2.5 mg/dL (0.5-1.5); TOTAL PROTEIN, SERUM 6.8 g/dL (6.0-8.3)
[2021-01-05] MEDS: INSULIN HUMULIN R 100 UNIT/ML 3ML SQ SCH ×3 (06:12→17:12)
[2021-01-05] MEDS: HYDRALAZINE HCL 10 MG TABLET PO SCH ×2 (06:12→13:56)
[2021-01-05 08:00] VITALS: BP 121/61
[2021-01-05] MEDS: HONEY 1 APPL/ML TUBE TP SCH (09:00)
[2021-01-05] MEDS: HEPARIN 5,000 UNIT VIAL SQ SCH (10:05)
[2021-01-05] MEDS: FAMOTIDINE 20MG TAB PO SCH (10:10)
[2021-01-05] MEDS: METOPROLOL TARTRATE 25 MG TAB PO SCH (10:10)
[2021-01-05] MEDS: ISOSORBIDE MONONITRATE 20 MG TABLET PO SCH (10:10)
[2021-01-05] MEDS: TORSEMIDE 20 MG TAB PO SCH (10:10)
[2021-01-05 11:49] VITALS: BP 155/99
[2021-01-05 16:35] VITALS: BP 117/67
== END 2021-01-05 19:00 | disposition home or self-care (01) | DRG 280 ==
LOC: EDH 07:57 → EDHIP 13:21 → OBSVTOIN 13:21 → 3AH 21:05
PROVIDERS: ADMIT Hospitalist; ATTEND Hospitalist
DX: I21.4 Non-ST elevation (NSTEMI) myocardial infarction (principal); I50.43 Acute on chronic combined systolic (congestive) and diastolic (congestive) heart failure; I13.0 Hypertensive heart and chronic kidney disease with heart failure and stage 1 through stage 4 chronic kidney disease, or unspecified chronic kidney disease; N17.9 Acute kidney failure, unspecified; M62.82 Rhabdomyolysis; E46 Unspecified protein-calorie malnutrition; N18.32 Chronic kidney disease, stage 3b; E11.51 Type 2 diabetes mellitus with diabetic peripheral angiopathy without gangrene; E11.22 Type 2 diabetes mellitus with diabetic chronic kidney disease; E11.40 Type 2 diabetes mellitus with diabetic neuropathy, unspecified; E66.9 Obesity, unspecified; Z68.35 Body mass index [BMI] 35.0-35.9, adult; E78.00 Pure hypercholesterolemia, unspecified; E78.5 Hyperlipidemia, unspecified; I25.5 Ischemic cardiomyopathy; Z79.82 Long term (current) use of aspirin; Z82.49 Family history of ischemic heart disease and other diseases of the circulatory system; Z83.3 Family history of diabetes mellitus; Z89.519 Acquired absence of unspecified leg below knee; Z89.612 Acquired absence of left leg above knee; Z20.822 Contact with and (suspected) exposure to COVID-19; D72.829 Elevated white blood cell count, unspecified
CPT/HCPCS: 36415; 71045; 80048; 80053; 80305; 81001; 82550; 82948; 83880; 84484; 85025; 85610; 85730; 87635; 87804; 87880; 93005; C9803; G0378; J1644; J1815; J1940

== ENCOUNTER → 2021-01-24 | Outpatient (CLI) | payer MEDICARE ==
[~2021-01-24] MED LIST changes: +AEC81 PO; -ALBUHFA IH; -ASCO500C18 PO; +ATOR40TA71 PO; +CARV3.12 PO; -FAMO20TA8 PO; +INSU100I26 SQ; +INSU100I3 SQ; -INSU10VI3 SQ; +LISI30TA4 PO; -ZINC50TA64 PO
== END | disposition home or self-care (01) ==
LOC: SHCH 09:27
PROVIDERS: ATTEND Internal Medicine Cardiovascular Disease
DX: I50.42 Chronic combined systolic (congestive) and diastolic (congestive) heart failure (principal)
CPT/HCPCS: 93306

== ENCOUNTER 2021-02-18 15:41 | Emergency (ER) | payer MEDICARE ==
[~2021-02-18] VITALS: Ht 188 cm; Wt 123.4 kg
[2021-02-18 16:42] LABS: BASOPHILS % (AUTO) 0.5 % (0.0-5.0); EOSINOPHILS % (AUTO) 4.1 % (0.0-8.0); HEMATOCRIT 38.3 % (42-54); LYMPHOCYTES % (AUTO) 18.9 % (21.0-51.0); MEAN CORPUSCULAR HEMOGLOBIN 28.1 pg (27.0-33.0); MEAN CORPUSCULAR HGB CONC 31.9 g/dL (32.0-36.0); MEAN CORPUSCULAR VOLUME 88.2 fL (79-99); MONOCYTES % (AUTO) 6.9 % (3.0-13.0); NEUTROPHILS % (AUTO) 69.5 % (40.0-77.0); PLATELET COUNT (AUTO) 241 K/uL (130-400); RED BLOOD CELL COUNT(AUTO) 4.34 MIL/uL (4.50-6.20); RED CELL DISTRIBUTION WIDTH 12.9 % (11.0-15.5); WHITE BLOOD COUNT (AUTO) 7.6 K/uL (4.8-10.8)
[2021-02-18 16:56] LABS: CREATININE 2.5 mg/dL (0.5-1.5); POTASSIUM 4.7 mmol/L (3.5-5.1)
[2021-02-18 17:00] LABS: ALBUMIN 2.7 g/dL (3.5-5.0); BILIRUBIN,TOTAL 0.3 mg/dL (0.2-1.0); TOTAL PROTEIN, SERUM 6.8 g/dL (6.0-8.3)
[2021-02-18 17:07] LABS: B-TYPE NATRIURETIC PEPTIDE 1600 pg/mL (0-100)
[2021-02-18] MEDS ORDERED: FUROSEMIDE 40MG VIAL IV ONE (22:30)
[2021-02-18] MEDS ORDERED: 0.9%NACL 50ML 50 ML IV ONE (23:34)
[2021-02-18] MEDS ORDERED: FUROSEMIDE 40MG VIAL ONE (23:40)
[2021-02-19 01:39] LABS: APPEARANCE,URINE Clear (CLEAR); BILIRUBIN,URINE Negative (NEGATIVE); COLOR,URINE Yellow (YELLOW); GLUCOSE, URINE (UA) Negative (NEGATIVE); KETONES,URINE Negative (NEGATIVE); LEUKOCYTE ESTERASE ,URINE Negative (NEGATIVE); NITRATE,URINE Negative (NEGATIVE); OCCULT BLOOD,URINE Moderate (NEGATIVE); PH,URINE 6.5 (5.0-8.0); PROTEIN,URINE >=1000 mg/dL (NEGATIVE); UROBILINOGEN,URINE 0.2 mg/dL (0.2-1.0)
[2021-02-19 01:52] LABS: BACTERIA,URINE Few /HPF (None Seen); WBC,URINE 0-1 /HPF (0-1)
[2021-02-19 01:53] LABS: SQUAMOUS EPITHELIAL CELL,UR 0-2 /HPF (0-2)
[2021-02-19] MEDS ORDERED: FUROSEMIDE 20MG VIAL IV ONE (02:00)
[2021-02-19 03:03] VITALS: BP 114/58
== END 2021-02-19 03:09 | disposition home or self-care (01) ==
LOC: EDH 15:41
DX: I11.0 Hypertensive heart disease with heart failure (principal); I50.9 Heart failure, unspecified; E78.00 Pure hypercholesterolemia, unspecified; E66.9 Obesity, unspecified; Z20.822 Contact with and (suspected) exposure to COVID-19; Z79.4 Long term (current) use of insulin; Z79.82 Long term (current) use of aspirin; Z79.899 Other long term (current) drug therapy; Z89.612 Acquired absence of left leg above knee; E11.51 Type 2 diabetes mellitus with diabetic peripheral angiopathy without gangrene; Z68.34 Body mass index [BMI] 34.0-34.9, adult
CPT/HCPCS: 36415; 71045; 80053; 81001; 83605; 83880; 84484; 85025; 87635; 87804 ×2; 93005; 96374; 96376; 99285; C9803; J1940 ×2

== ENCOUNTER → 2021-04-10 | Outpatient (CLI) | payer MEDICARE | END | disposition home or self-care (01) | LOC: OIH 10:45 | PROVIDERS: ATTEND Internal Medicine Cardiovascular Disease | DX: J90 Pleural effusion, not elsewhere classified (principal); I50.41 Acute combined systolic (congestive) and diastolic (congestive) heart failure; I10 Essential (primary) hypertension | CPT/HCPCS: 71046 ==

== ENCOUNTER 2021-04-26 06:08 | Observation (INO) | payer MEDICARE ==
[2021-04-24 14:19] LABS: EOSINOPHILS % (AUTO) 6.1 % (0.0-8.0); HEMATOCRIT 39.9 % (42-54); LYMPHOCYTES % (AUTO) 24.4 % (21.0-51.0); MEAN CORPUSCULAR HEMOGLOBIN 25.9 pg (27.0-33.0); MEAN CORPUSCULAR HGB CONC 31.3 g/dL (32.0-36.0); MEAN CORPUSCULAR VOLUME 82.6 fL (79-99); MONOCYTES % (AUTO) 7.3 % (3.0-13.0); NEUTROPHILS % (AUTO) 60.9 % (40.0-77.0); PLATELET COUNT (AUTO) 308 K/uL (130-400); RED BLOOD CELL COUNT(AUTO) 4.83 MIL/uL (4.50-6.20); RED CELL DISTRIBUTION WIDTH 14.7 % (11.0-15.5); WHITE BLOOD COUNT (AUTO) 6.2 K/uL (4.8-10.8)
[2021-04-24 14:38] LABS: INR 1.15 (0.85-1.15); PROTHROMBIN TIME 12.4 SEC (9.6-11.6)
[2021-04-24 14:39] LABS: PARTIAL THROMBOPLASTIN TIME 29.8 SEC (26.3-35.5)
[2021-04-24 14:42] LABS: CREATININE 2.5 mg/dL (0.5-1.5); POTASSIUM 4.3 mmol/L (3.5-5.1)
[2021-04-25 10:17] VITALS: BP 131/85
[~2021-04-26] VITALS: Ht 188 cm; Wt 124.2 kg
[2021-04-26] VITALS (21 sets, daily range): BP systolic 117–163; BP diastolic 66–108
[~2021-04-26 06:08] MED LIST changes: -LISI30TA4 PO; +LISI40TA9 PO; +TORS100T16 PO; -TORS20TA4 PO
[2021-04-26] MEDS ORDERED: 0.9%NACL 1000ML 1,000 ML IV ONE (06:23)
[2021-04-26] MEDS ORDERED: SODIUM BICARB 50MEQ 50ML VIAL 50 ML ONE (07:15)
[2021-04-26] MEDS ORDERED: IOHEXOL-350 50ML VIAL IV ONE (07:15)
[2021-04-26] MEDS ORDERED: LIDOCAINE HCL 400MG/20ML VIAL ONE (07:15)
[2021-04-26] MEDS ORDERED: FUROSEMIDE 20MG VIAL ONE (09:53)
[2021-04-26] MEDS ORDERED: KCL 20 MEQ ERTAB PO ONE (09:54)
[2021-04-26] MEDS ORDERED: FUROSEMIDE 40MG VIAL IV SCH (10:00)
[2021-04-26] MEDS ORDERED: KCL 20 MEQ ERTAB PO SCH (10:00)
[2021-04-26] MEDS ORDERED: METOLAZONE 2.5 MG TABLET PO SCH ×2 (10:00)
[2021-04-26] MEDS ORDERED: FUROSEMIDE 40MG VIAL IVP SCH (10:30)
[2021-04-26] MEDS ORDERED: CLOPIDOGREL 300MG TAB PO SCH (11:30)
[2021-04-26] MEDS: CARVEDILOL 3.125 MG TABLET PO SCH (21:07)
[2021-04-27 03:22] VITALS: BP 132/60
[2021-04-27 04:02] LABS: HEMATOCRIT 40.2 % (42-54); MEAN CORPUSCULAR HEMOGLOBIN 25.4 pg (27.0-33.0); MEAN CORPUSCULAR HGB CONC 30.3 g/dL (32.0-36.0); MEAN CORPUSCULAR VOLUME 83.6 fL (79-99); PLATELET COUNT (AUTO) 285 K/uL (130-400); RED BLOOD CELL COUNT(AUTO) 4.81 MIL/uL (4.50-6.20); RED CELL DISTRIBUTION WIDTH 14.9 % (11.0-15.5); WHITE BLOOD COUNT (AUTO) 7.2 K/uL (4.8-10.8)
[2021-04-27 04:14] LABS: CREATININE 2.5 mg/dL (0.5-1.5); POTASSIUM 4.1 mmol/L (3.5-5.1)
[2021-04-27] MEDS: INSULIN LISPRO 100 UNIT/ML 3ML SQ SCH ×2 (07:30→10:08)
[2021-04-27] MEDS ORDERED: ZARO5 PO (07:47)
[2021-04-27] MEDS ORDERED: SPIR25TA6 PO (07:49)
[2021-04-27] MEDS ORDERED: CLOP75TA32 PO (07:52)
[2021-04-27] MEDS ORDERED: LISI2.5T13 PO (07:58)
[2021-04-27 08:30] VITALS: BP 147/99
[2021-04-27] MEDS ORDERED: TORSEMIDE 20 MG TAB PO SCH (09:00)
[2021-04-27] MEDS ORDERED: ATORVASTATIN 40 MG TABLET PO SCH (09:00)
[2021-04-27] MEDS ORDERED: LISINOPRIL 40 MG TABLET PO SCH (09:00)
[2021-04-27] MEDS ORDERED: INSULIN GLARGINE 100 UNITS/ML 10 ML VIAL SQ SCH (09:00)
[2021-04-27] MEDS ORDERED: ASPIRIN 81MG CHEW TAB PO SCH (09:00)
[2021-04-27 10:00] VITALS: BP 147/99
[2021-04-27] MEDS: CARVEDILOL 3.125 MG TABLET PO SCH (10:00)
== END 2021-04-27 12:35 | disposition home or self-care (01) ==
LOC: DAH 06:08 → DAHIP 06:09 → DAH 06:09 → 2AH 15:44
PROVIDERS: ADMIT Internal Medicine Cardiovascular Disease; ATTEND Internal Medicine Cardiovascular Disease
DX: I11.0 Hypertensive heart disease with heart failure (principal); I50.42 Chronic combined systolic (congestive) and diastolic (congestive) heart failure; J90 Pleural effusion, not elsewhere classified; E11.59 Type 2 diabetes mellitus with other circulatory complications; E11.49 Type 2 diabetes mellitus with other diabetic neurological complication; E11.22 Type 2 diabetes mellitus with diabetic chronic kidney disease; N18.4 Chronic kidney disease, stage 4 (severe); I73.9 Peripheral vascular disease, unspecified; Z79.899 Other long term (current) drug therapy
CPT/HCPCS: 33289; 36415 ×3; 80048 ×2; 82948 ×5; 83880; 85025; 85027; 85610; 85730; 93005; 96374; A4215; A4216; A4221; A4222; A4223 ×3; A4606; A4663; C1760; C1769 ×4; C1894 ×3; C2624; G0378 ×26; J1644 ×2; J1940 ×2; J3490 ×2; J7030; Q9967; 96372

== ENCOUNTER 2021-05-18 15:47 | Emergency (ER) | payer MEDICARE ==
[~2021-05-18] VITALS: Ht 188 cm; Wt 117.9 kg
[~2021-05-18 15:47] MED LIST changes: +CLOP75TA32 PO; +LISI2.5T13 PO; +SPIR25TA6 PO; +ZARO5 PO
[2021-05-18 18:08] VITALS: BP 96/69
[2021-05-18] MEDS ORDERED: D-ME1POW16 PO (18:08)
[2021-05-18] MEDS: GUAIFENESIN SUGAR-FREE 100 MG/5 ML UDCUP ONE (18:24)
[2021-05-18] MEDS ORDERED: GUAIFENESIN SUGAR-FREE 100 MG/5 ML UDCUP PO ONE (18:30)
== END 2021-05-18 18:29 | disposition home or self-care (01) ==
LOC: EDH 15:47
DX: J06.9 Acute upper respiratory infection, unspecified (principal); Z20.822 Contact with and (suspected) exposure to COVID-19; E11.51 Type 2 diabetes mellitus with diabetic peripheral angiopathy without gangrene; E78.00 Pure hypercholesterolemia, unspecified; I11.0 Hypertensive heart disease with heart failure; I50.9 Heart failure, unspecified; Z79.4 Long term (current) use of insulin; Z79.82 Long term (current) use of aspirin; Z79.899 Other long term (current) drug therapy; Z89.612 Acquired absence of left leg above knee
CPT/HCPCS: 87635; 87804 ×2; 99283; C9803